=== PATIENT | male | born 1980 | race Caucasian/White ===

== ENCOUNTER 2019-08-11 19:10 | Inpatient (IN) | payer OTHER ==
[~2019-08-11] VITALS: Ht 190.5 cm; Wt 112.5 kg
[2019-08-11] MEDS ORDERED: SODIUM CHLORIDE 0.9% 1,000 ML IV ONE ×2 (20:00)
[2019-08-11] MEDS ORDERED: MORPHINE SULFATE 10 MG/ML CPJ IV ONE ×2 (20:00→22:15)
[2019-08-11 20:24] LABS: BASOPHILS % 0.1 % (0.0-2.0); EOSINOPHILS % 0.8 % (0.0-5.0); HEMATOCRIT. 46.1 % (42.0-52.0); HEMOGLOBIN. 15.3 g/dL (14.0-18.0); LYMPHOCYTES % 9.2 % (20.0-50.0); MEAN CORPUSCULAR VOLUME 90.2 fL (80.0-94.0); MEAN PLATELET VOLUME 9.6 fl (7.4-10.4); MONOCYTES % 9.5 % (2.0-8.0); NEUTROPHILS % 80.4 % (40.0-76.0); PLATELET 200 x1000/uL (130-400); RED BLOOD CELL COUNT 5.11 mill/uL (4.7-6.1); RED CELL DISTRIBUTION WIDTH 13.3 % (11.6-14.6)
[2019-08-11 20:25] LABS: CHLORIDE 102 mEq/L (98-107)
[2019-08-11 20:29] LABS: INR 1.1; PARTIAL THROMBOPLASTIN TIME 30.1 sec (23.4-31.0); PROTHROMBIN TIME 11.5 sec (9.6-11.0)
[2019-08-11] MEDS ORDERED: IOHEXOL-300 100 ML BOTTLE ONE (21:17)
[2019-08-11] MEDS ORDERED: CLINDAMYCIN 600 MG in DEXTROSE 5% WATER 50 ML IV ONE (22:15)
[2019-08-11] MEDS ORDERED: CEFTRIAXONE 1 G PREMIX 50 ML IV ONE (22:15)
[2019-08-11 22:23] LABS: CLARITY URINE CLOUDY (CLEAR); COLOR URINE DARK YELLOW (YELLOW); KETONES URINE TRACE (NEGATIVE); LEUKOCYTE ESTERASE URINE NEGATIVE (NEGATIVE); NITRITE URINE NEGATIVE (NEGATIVE); OCCULT BLOOD URINE NEGATIVE (NEGATIVE); PH URINE 5.5 (4.5-8.0); PROTEIN URINE TRACE (NEGATIVE); SPECIFIC GRAVITY URINE 1.028 (1.005-1.030)
[2019-08-11] MEDS ORDERED: CLINDAMYCIN 600MG PREMIX 50 ML IV SCH (23:00)
[2019-08-12] MEDS ORDERED: MORPHINE SULFATE 10 MG/ML CPJ IV ONE ×2 (00:30→05:15)
[2019-08-12] MEDS ORDERED: KETOROLAC 30MG/ML VIAL IV ONE (01:15)
[2019-08-12 06:00] VITALS: BP 165/94
[2019-08-12] MEDS ORDERED: LORAZEPAM 2MG/ML CPJ IV PRN (07:45)
[2019-08-12] MEDS ORDERED: MORPHINE SULFATE 2 MG/ML CPJ (NOT FOR IM USE) IV PRN (07:45)
[2019-08-12] MEDS ORDERED: IPRATROPIUM/ALBUTEROL 0.5-3(2.5)MG/3ML NEB HHN PRN ×2 (07:45)
[2019-08-12] MEDS ORDERED: ACETAMINOPHEN 325MG TABLET PO PRN (07:45)
[2019-08-12] MEDS ORDERED: VANCOMYCIN 1 G PREMIX 200 ML IV SCH (08:30)
[2019-08-12 08:45] VITALS: BP 110/58
[2019-08-12] MEDS ORDERED: LIDOCAINE HCL 1% 20ML VIAL (Pyxis) INJ INFIL NR (10:45)
[2019-08-12 12:00] VITALS: BP 124/83
[2019-08-12 12:09] VITALS: BP 98/59
[2019-08-12] MEDS ORDERED: VANCOMYCIN 1,750 MG in DEXT 5% WATER 500 ML IV NR (12:30)
[2019-08-12] MEDS: PIPERACILLIN/TAZOBACTAM 3.375 G in DEXT 5% WATER 100 ML IV SCH ×2 (13:09→19:24)
[2019-08-12] MEDS: SODIUM CHLORIDE 0.45% 1,000 ML IV SCH ×2 (13:10→18:41)
[2019-08-12] MEDS: ENOXAPARIN 30MG/0.3ML SYR SUBCUT SCH ×2 (13:12→22:13)
[2019-08-12 16:33] VITALS: BP 108/65
[2019-08-12 20:26] VITALS: BP 101/50
[2019-08-12] MEDS ORDERED: VANCOMYCIN 1500MG in DEXTROSE 5% WATER 250ML IV SCH (21:00)
[2019-08-12] MEDS: VANCOMYCIN 1500MG in DEXTROSE 5% WATER 250ML IV SCH (23:30)
[2019-08-13 00:18] VITALS: BP 115/57
[2019-08-13] MEDS: PIPERACILLIN/TAZOBACTAM 3.375 G in DEXT 5% WATER 100 ML IV SCH ×4 (02:46→18:14)
[2019-08-13 04:30] VITALS: BP 104/59
[2019-08-13] MEDS: SODIUM CHLORIDE 0.45% 1,000 ML IV SCH ×4 (06:40→22:45)
[2019-08-13 07:53] LABS: HEMATOCRIT. 37.7 % (42.0-52.0); HEMOGLOBIN. 12.6 g/dL (14.0-18.0); MEAN CORPUSCULAR HEMOGLOBIN 30.3 pg (28.0-32.0); MEAN CORPUSCULAR VOLUME 90.5 fL (80.0-94.0); MEAN PLATELET VOLUME 10.7 fl (7.4-10.4); PLATELET 165 x1000/uL (130-400); RED BLOOD CELL COUNT 4.17 mill/uL (4.7-6.1); RED CELL DISTRIBUTION WIDTH 12.9 % (11.6-14.6)
[2019-08-13 08:16] LABS: CHLORIDE 103 mEq/L (98-107)
[2019-08-13 09:27] VITALS: BP 114/56
[2019-08-13] MEDS: ENOXAPARIN 30MG/0.3ML SYR SUBCUT SCH ×2 (09:51→20:23)
[2019-08-13] MEDS: HYDROCODONE/ACETAMINOPHEN 5/325MG TABLET PO PRN ×2 (10:11→18:16)
[2019-08-13 12:00] VITALS: BP 103/58
[2019-08-13] MEDS: VANCOMYCIN 1500MG in DEXTROSE 5% WATER 250ML IV SCH ×2 (12:57→22:44)
[2019-08-13 16:00] VITALS: BP 105/59
[2019-08-13 16:38] LABS: PLATELET ESTIMATE NORMAL
[2019-08-13 20:38] VITALS: BP 108/57
[2019-08-14] VITALS (7 sets, daily range): BP systolic 113–120; BP diastolic 56–63
[2019-08-14] MEDS: PIPERACILLIN/TAZOBACTAM 3.375 G in DEXT 5% WATER 100 ML IV SCH ×3 (00:03→11:12)
[2019-08-14] MEDS: ENOXAPARIN 30MG/0.3ML SYR SUBCUT SCH (09:05)
[2019-08-14] MEDS: SODIUM CHLORIDE 0.45% 1,000 ML IV SCH (09:06)
[2019-08-14 09:58] LABS: CHLORIDE 105 mEq/L (98-107)
[2019-08-14 11:20] LABS: HEMATOCRIT 39.2 % (42.0-52.0); HEMOGLOBIN 12.9 g/dL (14.0-18.0); MEAN CORPUSCULAR HEMOGLOBIN 29.7 pg (28.0-32.0); MEAN CORPUSCULAR VOLUME 89.9 fL (80.0-94.0); PLATELET 192 x1000/uL (130-400); RED BLOOD CELL COUNT 4.35 mill/uL (4.7-6.1)
[2019-08-14] MEDS ORDERED: VANCOMYCIN 1500MG in DEXTROSE 5% WATER 250ML IV SCH (12:00)
== END 2019-08-14 19:00 | disposition home or self-care (01) | DRG 345 ==
LOC: ER 19:10 → 6EST 08-12 03:43 → ENRESERV 08-12 04:09 → 6WST 08-12 08:28
PROVIDERS: ADMIT Internal Medicine; ATTEND Internal Medicine
PROC: 0D9P0ZZ Drainage of Rectum, Open Approach (ICD-10-PCS; principal; 2019-08-12)
DX: K61.1 Rectal abscess (principal); R65.10 Systemic inflammatory response syndrome (SIRS) of non-infectious origin without acute organ dysfunction; E86.0 Dehydration; I10 Essential (primary) hypertension
CPT/HCPCS: 36415; 74177; 80048; 80202; 81003; 85027; 86850; 86900; 87070; 87077; 87186; 96374; 99285; C1893; J0696; J1650; J1885; J2270; J2543; J3370; J3490; J7030; J7060; Q9967